=== PATIENT | female | born 1980 | race Caucasian/White ===

== ENCOUNTER 2018-11-05 13:12 | Inpatient (IN) | payer MEDICAID, OTHER ==
[~2018-11-05] VITALS: Ht 172.7 cm; Wt 68.2 kg
[2018-11-05] MEDS ORDERED: CefTRIAXone 2gm/D5W 50ml 50 ML IV ONE (13:40)
[2018-11-05] MEDS ORDERED: vancomycin/NS 1 GM ADD-VANTAGE 250 ML IV ONE (13:40)
[2018-11-05 14:13] LABS: BASOPHILS # (AUTO) 0.1 X10'3 (0-0.2); BASOPHILS % (AUTO) 0.5 % (0-1); EOSINOPHILS % (AUTO) 0.3 % (0-6); HEMATOCRIT 44.5 % (35.0-45.0); HEMOGLOBIN 14.8 g/dl (12.0-16.0); LYMPHOCYTES % (AUTO) 8.3 % (21-51); MEAN CORPUSCULAR HEMOGLOBIN 30.2 PG (27.0-31.0); MEAN CORPUSCULAR HGB CONC 33.2 g/dL (33.0-36.5); MEAN CORPUSCULAR VOLUME 90.8 FL (78-98); MEAN PLATELET VOLUME 6.4 FL (7.4-10.4); MONOCYTES # (AUTO) 0.6 X10'3 (0-0.9); MONOCYTES % (AUTO) 5.4 % (2-12); NEUTROPHILS # (AUTO) 10.1 X10'3 (1.8-7.7); NEUTROPHILS % (AUTO) 85.5 % (42-75); PLATELET COUNT 301 X10'3 (140-440); RED BLOOD COUNT 4.91 X10'6 (4.20-5.60); RED CELL DISTRIBUTION WIDTH 13.5 % (11.5-14.5); WHITE BLOOD COUNT 11.8 X10'3 (4.5-11.0)
[2018-11-05 14:16] LABS: CLARITY,URINE CLOUDY (Clear); COLOR,URINE YELLOW (Yellow); GLUCOSE, URINE NEGATIVE (Neg); KETONES,URINE NEGATIVE (Neg); LEUKOCYTE ESTERASE ,URINE SMALL (Neg); NITRITES, URINE NEGATIVE (Neg); OCCULT BLOOD,URINE MODERATE (Neg); PROTEIN,URINE TRACE mg/dl (Neg); URINE HCG NEGATIVE (NEG)
[2018-11-05 14:21] LABS: UA COLLECTION TYPE CLN CATCH MIDSTREAM
[2018-11-05 14:22] LABS: BACTERIA,URINE 4+ /HPF (Neg); MUCUS STRANDS NONE SEEN /LPF (Neg); RBC,URINE 0-2 /HPF (0-2); SQUAMOUS EPITHELIAL CELL,UR FEW /LPF (FEW); WBC,URINE 30-50 /HPF (0-4)
[2018-11-05 14:36] LABS: PARTIAL THROMBOPLASTIN TIME 32 SECONDS (22-32)
[2018-11-05 14:37] LABS: ALANINE AMINOTRANSFERASE 19 U/L (12-78); ALBUMIN 3.3 G/DL (3.4-5.0); ALBUMIN/GLOBULIN RATIO 0.8 (1.1-1.5); ALKALINE PHOSPHATASE 88 IU/L (46-116); ANION GAP 6 (8-16); ASPARTATE AMINO TRANSFERASE 12 U/L (10-37); BILIRUBIN,TOTAL 0.3 MG/DL (0.1-1.0); BLOOD UREA NITROGEN 11 MG/DL (7-18); BUN/CREATININE RATIO 10.6 (6.6-38.0); CALCIUM 8.9 MG/DL (8.5-10.1); CHLORIDE 100 MMOL/L (99-107); CREATININE 1.04 MG/DL (0.40-0.90); GLUCOSE 98 MG/DL (70-104); MAGNESIUM 1.9 MG/DL (1.5-2.4); POTASSIUM 3.4 MMOL/L (3.5-5.1); SODIUM 136 MMOL/L (135-145); TOTAL CARBON DIOXIDE 29.9 MMOL/L (24-32); TOTAL PROTEIN 7.5 G/DL (6.4-8.2); eGFR 59 ML/MIN
[2018-11-05] MEDS ORDERED: ondansetron/PF 4mg/2ml inj IV PRN (16:05)
[2018-11-05] MEDS ORDERED: mag hydrox/Alum hydrox/simeth 30ml oral suspension PO PRN (16:05)
[2018-11-05] MEDS ORDERED: HYDROcodone/acetaminophen 5mg/325mg tablet PO PRN (16:05)
[2018-11-05] MEDS ORDERED: morphine 2 MG/ML inj. syringe IV PRN (16:05)
[2018-11-05] MEDS ORDERED: magnesium hydroxide 30ml (MOM) UD suspension PO PRN (16:05)
[2018-11-05] MEDS ORDERED: HYDROcodone/acetaminophen 10/325mg tab PO PRN (16:05)
[2018-11-05] MEDS ORDERED: acetaminophen 325mg tablet PO PRN ×2 (16:05)
[2018-11-05] MEDS ORDERED: NO HOME MEDS (16:07)
[2018-11-05] MEDS: normal saline 1000ml 1,000 ML IV SCH (16:13)
[2018-11-05] MEDS ORDERED: levoFLOXACIN-Levaquin 250mg/D5 50 ML IV SCH (16:36)
--- NOTE | 2018-11-05 17:01 | NUR ---
ATTEMPTED TO CALL REPORT TO REHAN ORTIZ ON SURGICAL UNIT. NURSE IS NOT AVAILABLE FOR REPORT AT THIS TIME. MESSAGE LEFT.
--- NOTE | 2018-11-05 17:11 | NUR ---
CALLED FOR REPORT FROM LON.
--- NOTE | 2018-11-05 17:22 | NUR ---
TELEPHONE REPORT TO REHAN ORTIZ ON SURGICAL UNIT.
--- NOTE | 2018-11-05 17:49 | NUR ---
PATIENT CAM TO THE FLOOR, TUCKED HER IN AND WILL CHECK EMAR AND GET REPORT READY FOR NOC SHIFT
[2018-11-05 17:58] VITALS: BP 143/84
--- NOTE | 2018-11-05 18:18 | NUR ---
Problems reprioritized. Patient report given, questions answered & plan of care reviewed with FERCHO VAN.
--- NOTE | 2018-11-05 18:53 | NUR ---
Patient in room [facility]. I have received report from REHAN Dover and had the opportunity to ask questions and assume patient care. Addendum: 11/05/18 at 1855 by Naomi Haider RN Amended: Links added.
[2018-11-05] MEDS ORDERED: nicotine 21mg patch - 24 hr TD SCH (19:05)
[2018-11-05] MEDS: morphine 2 MG/ML inj. syringe IV PRN (19:08)
[2018-11-05] MEDS ORDERED: nicotine 14mg patch - 24hr TD SCH (19:35)
[2018-11-05 20:00] VITALS: BP 106/66
[2018-11-05] MEDS: ceFAZolin 1GM/D5W- ADD-VANTAGE 50 ML IV SCH (23:38)
[2018-11-06] VITALS: BP 103/59
[2018-11-06] MEDS: normal saline 1000ml 1,000 ML IV SCH ×2 (02:02→12:02)
[2018-11-06] MEDS: morphine 2 MG/ML inj. syringe IV PRN (05:35)
[2018-11-06 05:38] LABS: BASOPHILS # (AUTO) 0.2 X10'3 (0-0.2); BASOPHILS % (AUTO) 2.8 % (0-1); EOSINOPHILS # (AUTO) 0.1 X10'3 (0-0.9); EOSINOPHILS % (AUTO) 1.1 % (0-6); HEMOGLOBIN 12.9 g/dl (12.0-16.0); LYMPHOCYTES % (AUTO) 14.2 % (21-51); MEAN CORPUSCULAR HGB CONC 33.1 g/dL (33.0-36.5); MEAN CORPUSCULAR VOLUME 90.5 FL (78-98); MEAN PLATELET VOLUME 6.8 FL (7.4-10.4); MONOCYTES # (AUTO) 0.6 X10'3 (0-0.9); MONOCYTES % (AUTO) 8.2 % (2-12); NEUTROPHILS % (AUTO) 73.7 % (42-75); PLATELET COUNT 238 X10'3 (140-440); RED CELL DISTRIBUTION WIDTH 13.5 % (11.5-14.5); WHITE BLOOD COUNT 6.8 X10'3 (4.5-11.0)
[2018-11-06 05:51] LABS: ALBUMIN 2.4 G/DL (3.4-5.0); ANION GAP 8 (8-16); BLOOD UREA NITROGEN 8 MG/DL (7-18); BUN/CREATININE RATIO 10.1 (6.6-38.0); CALCIUM 8.3 MG/DL (8.5-10.1); CHLORIDE 106 MMOL/L (99-107); CREATININE 0.79 MG/DL (0.40-0.90); GLUCOSE 101 MG/DL (70-104); SODIUM 138 MMOL/L (135-145); TOTAL CARBON DIOXIDE 24.1 MMOL/L (24-32); eGFR 81 ML/MIN
--- NOTE | 2018-11-06 06:13 | NUR ---
Problems reprioritized. Patient report given, questions answered & plan of care reviewed with REHAN Young. Addendum: 11/06/18 at 0614 by Naomi Haider RN Amended: Links added.
[2018-11-06 07:00] VITALS: BP 103/61
[2018-11-06 08:00] VITALS: BP_SYST 109; BP_SYST 112; BP_SYST 116; BP_DIAS 63; BP_DIAS 68; BP_DIAS 72
[2018-11-06] MEDS ORDERED: enoxaparin 40mg/0.4ml syringe SUBCUT SCH (08:00)
[2018-11-06] MEDS ORDERED: CefTRIAXone/D5W-Rocephin 1gm 50 ML IV SCH (08:00)
[2018-11-06] MEDS ORDERED: HYDR-3964 PO (09:39)
[2018-11-06] MEDS: ceFAZolin 1GM/D5W- ADD-VANTAGE 50 ML IV SCH (09:39)
[2018-11-06] MEDS ORDERED: CEPH250T PO (09:39)
== END 2018-11-06 12:37 | disposition home or self-care (01) | DRG 383 ==
LOC: ER 13:13 → SUR 3N 17:34 → CMPBEDREQ 19:16
PROVIDERS: ADMIT Internal Medicine; ATTEND Internal Medicine
DX: L03.115 Cellulitis of right lower limb (principal); N17.9 Acute kidney failure, unspecified; N12 Tubulo-interstitial nephritis, not specified as acute or chronic; R16.0 Hepatomegaly, not elsewhere classified; D25.9 Leiomyoma of uterus, unspecified; F15.90 Other stimulant use, unspecified, uncomplicated; E86.0 Dehydration; F17.210 Nicotine dependence, cigarettes, uncomplicated; Z83.3 Family history of diabetes mellitus; Z87.442 Personal history of urinary calculi; Z90.5 Acquired absence of kidney; Z88.5 Allergy status to narcotic agent
CPT/HCPCS: 36415; 71045; 73590; 74176; 80048; 80053; 81001; 81025; 83605; 83735; 84145; 85025; 85610; 85730; 87040; 87070; 87077; 87088; 87186; 93005; 96365; 96366; 96368; 99285; G0378; J0690; J0696; J1956; J2270; J3370; J7030

== ENCOUNTER 2024-02-10 11:35 | Emergency (ER) | payer MEDICAID ==
[~2024-02-10] VITALS: Ht 162.6 cm; Wt 61.4 kg
[~2024-02-10 11:35] MED LIST: HYDR-3964 PO
[2024-02-10] MEDS ORDERED: NAPR-56 PO (12:28)
[2024-02-10] MEDS: ketorolac trometh. 30mg/ml inj. IM ONE (12:41)
[2024-02-10] MEDS: HYDROcodone/acetaminophen 5mg/325mg tablet PO ONE (12:46)
[2024-02-10 12:48] VITALS: BP 117/80; PULSE 60; RESP 16; TEMP 98.3; O2SAT 99
== END 2024-02-10 12:51 | disposition home or self-care (01) ==
LOC: ER 11:36
DX: S39.012A Strain of muscle, fascia and tendon of lower back, initial encounter (principal); F15.90 Other stimulant use, unspecified, uncomplicated; Z88.5 Allergy status to narcotic agent; Z79.899 Other long term (current) drug therapy; Z79.1 Long term (current) use of non-steroidal anti-inflammatories (NSAID); Z98.890 Other specified postprocedural states; W19.XXXA Unspecified fall, initial encounter; Y93.89 Activity, other specified; Y92.89 Other specified places as the place of occurrence of the external cause; Y99.8 Other external cause status
CPT/HCPCS: 72220; 99283

== ENCOUNTER 2024-03-18 16:34 | Emergency (ER) | payer MEDICAID ==
[~2024-03-18] VITALS: Ht 172.7 cm; Wt 60.6 kg
[2024-03-18] MEDS: CefTRIAXone 1000mg IM Kit (w/lidocaine diluent) IM STA (16:52)
[2024-03-18] MEDS: azithromycin 250mg tablet PO ONE (16:52)
[2024-03-18 17:28] LABS: SYPHILIS SCREENING TEST POC NEGATIVE (Negative)
[2024-03-18 17:53] VITALS: BP 110/62; PULSE 76; RESP 18; TEMP 98.2; O2SAT 97
[2024-03-21 08:15] LABS: CHLAMYDIA TRACHOMATIS, NAA Positive (Negative)
== END 2024-03-18 17:55 | disposition home or self-care (01) ==
LOC: ER 16:34
DX: A63.8 Other specified predominantly sexually transmitted diseases (principal); F17.200 Nicotine dependence, unspecified, uncomplicated; Z88.8 Allergy status to other drugs, medicaments and biological substances; Z87.442 Personal history of urinary calculi; Z98.890 Other specified postprocedural states
CPT/HCPCS: 36415; 86592; 87491; 87591; 96372; 99283; J0696

== ENCOUNTER 2024-06-30 21:19 | Emergency (ER) | payer MEDICAID ==
[~2024-06-30] VITALS: Ht 172.7 cm; Wt 62.6 kg
[2024-06-30 21:22] VITALS: BP 133/87; PULSE 86; TEMP 98.2; O2SAT 98
[2024-06-30] MEDS ORDERED: SULF1TAB45 PO (22:58)
[2024-06-30] MEDS ORDERED: CEPH-585 PO (22:58)
[2024-06-30] MEDS: sulfamethoxazole/trimethoprim DS (800/160mg) tablet PO ONE (23:25)
[2024-06-30] MEDS: cephalexin 250mg capsule PO ONE (23:25)
[2024-06-30 23:27] VITALS: RESP 16
== END 2024-06-30 23:27 | disposition home or self-care (01) ==
LOC: ER 21:20
DX: S60.351A Superficial foreign body of right thumb, initial encounter (principal); L03.011 Cellulitis of right finger; F15.90 Other stimulant use, unspecified, uncomplicated; Z88.5 Allergy status to narcotic agent; Z87.442 Personal history of urinary calculi; W45.8XXA Other foreign body or object entering through skin, initial encounter; Y93.89 Activity, other specified; Y92.89 Other specified places as the place of occurrence of the external cause; Y99.8 Other external cause status
CPT/HCPCS: 73140; 99283

== ENCOUNTER 2025-02-28 23:46 | Emergency (ER) | payer MEDICAID ==
[~2025-02-28] VITALS: Ht 185.4 cm; Wt 52.5 kg
[~2025-02-28 23:46] MED LIST changes: +CEPH-585 PO
[2025-03-01 00:02] VITALS: BP 119/67; PULSE 94; RESP 15; TEMP 99.3; O2SAT 98
[2025-03-02] MEDS ORDERED: NO HOME MEDS (04:12)
== END 2025-03-01 01:07 | disposition left against medical advice (07) ==
LOC: ER 23:47
DX: R10.9 Unspecified abdominal pain (principal); Z53.21 Procedure and treatment not carried out due to patient leaving prior to being seen by health care provider; Z88.1 Allergy status to other antibiotic agents; Z88.5 Allergy status to narcotic agent

== ENCOUNTER 2025-03-01 21:54 | Inpatient (IN) | payer MEDICAID ==
[~2025-03-01] VITALS: Ht 172.7 cm; Wt 65.6 kg
--- NOTE | 2025-03-01 22:52 | Physician Documentation ---
History of Present Illness Chief Complaint: Flank Pain Stated Complaint: KIDNEY STONES Time Seen by MD: 22:41 Primary Medical Doctor: none HPI 44-year-old female, history of single kidney, who presents with right side abdominal pain She tells me that she had her left kidney removed previously. She has had recurrent right-sided kidney stones. She tells me that recently she has been passing multiple kidney stones, but over the past 24 hours has been feeling well. Today, she developed severe pain in the right side of her abdomen. She states it wraps from her right flank all the way around the right lower abdomen. She reports associated nausea and general malaise. She is still urinating. No pain or burning or hematuria. No fevers or chills. No vomiting or diarrhea. The pain feels worse than previous kidney stones. Medication Reconciliation Allergies: Coded Allergies: codeine (Verified Allergy, Mild, 03/01/25) Hyperactive ciprofloxacin (Verified Allergy, Unknown, 03/01/25) Scheduled Cephalexin*Monohydrate* (Keflex*), 1 CAP PO QID Scheduled PRN Hydrocodone Bit/Acetaminophen (Hydrocodon-Acetaminophen 5-325), 1 TAB PO Q6H PRN PRN for moderate pain 4-6 Past Medical History Past Medical History: Kidney Stones Past Surgical History: other Other Past Surgical History: Left nephrectomy Alcohol Use: None Drug Use: methamphetamine Lives In: Home Review of Systems Constitutional: Denies: fever Gastrointestinal: Reports: abdominal pain, nausea; Denies: vomiting Physical Exam Vital Signs: Temperature: 100.5, Source: Oral, Heart Rate: 101, Respiratory Rate: 18, BP: 111/63, Pulse Oximetry: 99, Weight: 65.600 Physical Exam General: This is a very uncomfortable, tearful, thin middle-aged woman lying on her side in bed HEENT: Atraumatic, oropharynx appears dry Heart: Mild tachycardic, appears regular Lungs: normal work of breathing, normal oxygen saturation on room air Abdomen: Soft, nondistended. Diffuse tenderness on palpation of the right side of the abdomen only, no left-sided tenderness, voluntary guarding. Back: Positive right CVA tenderness to percussion Neuro: Alert and oriented, no focal deficits Psychiatric: Anxious and in mild distress Progress Results/Orders Results/Orders Orders - PABLO VARGHESE MD Normal Saline 1000ml (0.9% Sodium Chlori (03/01/25 22:50) Ondansetron Inj. (Zofran 4mg/2ml Vial) (03/01/25 22:50) Hydromorphone 0.5 Mg/0.5 Ml/Pf (Dilaudid (03/01/25 22:50) Cbc/Diff (03/01/25 22:48) CMP (03/01/25 22:48) Lipase (03/01/25 22:48) Urinalysis, Cult If Indicated (03/01/25 22:48) Vital Signs 03/01/25 21:57 Temp 100.5 Pulse 101 Resp 18 B/P (MAP) 111/63 Pulse Ox 99 EKG/XRAY/CT/US/VASC/MRI CT : Interpreted By: both Impression I personally reviewed the CT scan, which shows no obvious obstructing ureteral stone, but there are inflammatory changes to the kidney Consults/PCP Consults/PCP : Additional Comment Consult: I spoke to the internal medicine service, for admission in the hospital Medical Decision Making Additional Comments Differential includes kidney stone, pyelonephritis, infected stone, diverticulitis, colitis, bowel obstruction, perforated bowel Assessment The patient presents with severe flank pain. She only has 1 kidney. Her workup is concerning for pyelonephritis. No evidence of obstructing ureteral stone. She was given pain and nausea medication, IV fluids, and IV antibiotics. Given that she only has 1 kidney, she will be admitted to the medicine service for further treatment. Departure Impression: Primary Impression: Acute pyelonephritis Referrals: NO PRIMARY CARE PROVIDER (PCP) Signature Scribe Signature: na Attestation: PABLO Flores MD Mar 01, 2025 22:52
[2025-03-01] MEDS: ondansetron/PF 4mg/2ml inj IV ONE (23:07)
[2025-03-01] MEDS: HYDROmorphone inj. 0.5 MG/0.5 ML DISP.SYRIN IV ONE (23:07)
[2025-03-01] MEDS: normal saline 1000ML IV soln IVB ONE (23:07)
[2025-03-01 23:20] LABS: MEAN PLATELET VOLUME 6.7 FL (7.4-10.4); RED CELL DISTRIBUTION WIDTH 13.9 % (11.5-14.5)
[2025-03-01 23:36] LABS: CREATININE 1.09 MG/DL (0.40-0.90); TOTAL CARBON DIOXIDE 27.0 MMOL/L (24-32); eCRCL 65 ML/MIN; eGFR 54 ML/MIN
[2025-03-02 01:12] LABS: LEUKOCYTE ESTERASE ,URINE LARGE (Neg); NITRITES, URINE POSITIVE (Neg); OCCULT BLOOD,URINE MODERATE (Neg)
[2025-03-02 01:19] LABS: UA COLLECTION TYPE NON-SPECIFIED
[2025-03-02 01:22] LABS: SQUAMOUS EPITHELIAL CELL,UR NONE SEEN /LPF (FEW)
[2025-03-02 01:53] LABS: URINE HCG NEGATIVE (NEG)
[2025-03-02] MEDS: CefTRIAXone/D5W-Rocephin 1gm 50 ML IV ONE (01:58)
[2025-03-02] MEDS: HYDROmorphone inj. 0.5 MG/0.5 ML DISP.SYRIN IV ONE (01:59)
[2025-03-02] MEDS ORDERED: potassium Cl 40MEQ/1/2NS 520ml 520 ML IV PRN (03:00)
[2025-03-02] MEDS ORDERED: potassium Cl 20 mEq SR tablet PO PRN (03:00)
[2025-03-02] MEDS ORDERED: ondansetron/PF 4mg/2ml inj IV PRN (03:00)
[2025-03-02] MEDS ORDERED: magnesium sulf-water 2g/50mL 50 ML IV PRN (03:00)
[2025-03-02] MEDS ORDERED: magnesium sulf-water 4G/100mL 100 ML IV PRN (03:00)
[2025-03-02] MEDS ORDERED: magnesium Cl slow-release 64mg tablet PO PRN (03:00)
--- NOTE | 2025-03-02 03:12 | HISTORY AND PHYSICAL-Residence ---
History & Physical Providers to CC Resident Creating Document: ROGERS JAMES RES CC: SANDOR FERRARO MD ~ History of Present Illness Primary Medical Doctor: ar hoskins Reason for Admit\Complaint: Right flank pain History of Present Illness 44-year-old female with history of recurrent nephrolithiasis, left nephrectomy, presented to the ER with chief complaints of right flank pain for about 1-2 days. Patient stated for the past few days she has been passing kidney stones. For about two days she developed right-sided flank pain pain 8/10, radiating to back, associated with dysuria. She also noticed fever with chills. Endorses nausea, vomitings, generalized fatigue. Denies hematuria. She also stated she is having intermittent vaginal bleed during this period. She did not have any abnormal uterine bleed before. Stated she had a Pap smear done few months ago which was normal. She had recurrent kidney stone since engage in the actually in 2003 she had to undergo left nephrectomy secondary to damage from kidney stones. She is not on follow up with any urologist. She does not know about the stone analysis or etiology of kidney stones. Denies any family history of kidney stones. PCP is [facility] Allergies: Coded Allergies: codeine (Verified Allergy, Mild, 03/01/25) Hyperactive ciprofloxacin (Verified Allergy, Unknown, 03/01/25) Home Medications Home Medications Active Keflex* (Cephalexin HCl) 500 Mg Capsule 1 Cap PO QID Hydrocodon-Acetaminophen 5-325 (Hydrocodone Bit/Acetaminophen) 1 Each Tablet 1 Tab PO Q6H PRN PRN Past Medical History Past Medical History Recurrent kidney stones She actually lost a left kidney due to complications of nephrolithiasis HCV infection Past Surgical History Surgical History Comment Left kidney removal Ankle surgery Wrist surgery Knee surgery Lung peeling Past Social History Social History Comment Smokes pack a day for the past 24 years Denies alcohol use Denies illicit drug use Independent for ADLs She lives with her mom Alcohol Use: None Drug Use: Methamphetamine Lives In: Home ROS ROS ROS Constitutional: Positive for fever, dizziness, weakness. Decreased appetite HEENT: No blurring of the vision, No sore throat, epistaxis, tinnitus Cardiovascular: No chest pain/discomfort, palpitations, syncope. No pedal edema Respiratory: No sob, cough,, hemoptysis Gastrointestinal: Positive for abdominal pain, nausea, vomiting. No diarrhea, constipation, melena. Genitourinary: No frquency, urgency, incontinence, nocturia. Positive for dysuria, hematuria Musculoskeletal: No arthralgia, myalgia Endocrine: Positive for fatigue, no polydipsia, polyuria. No heat or cold intolerance Neurologic: No headache, vertigo. No weakness, numbness or tingling of extremities Psychiatric: No hallucinations/delusions, no anhedonia, no suicidal ideation\ Hematologic: No bleeding or bruises Gynecologic- positive for vaginal bleed Reviewed in full. All negative except for pertinent positives in HPI Constitutional: Denies: fever Gastrointestinal: Reports: abdominal pain, nausea; Denies: vomiting Exam Vitals: Vital Signs Date Time Temp Pulse Resp B/P (MAP) Pulse Ox O2 Delivery O2 Flow Rate FiO2 03/02/25 02:35 98.1 101 16 104/68 (80) 97 General: General: Head: Normocephalic with an atraumatic Eyes: Pupils- 3mm, reacting to light, conjunctiva- anicteric Nose and throat: No polyps, septum- normal, no mucosal ulcers Neck: Supple, no lymphadenopathy, no carotid bruit Respiratory: No use of accessory muscles of respiration, Bilateral normal vesiscular breath sounds heard. No wheeze, rhochi or creps Cardiac: S1-S2 heard, rythm regular, no gallop/murmur Abdomen: Mild distended, right flank tenderness, no guarding/rigidity no organomegaly, bowel sounds- heard Extremities: no clubbing, no pedal edema, no deformities, peripheral pulses- 2+ Skin: warm and dry, no rash, no purpura Neuro: No focal deficit, gross cranial nerve exam- normal Diagnostic Data Last Recorded Lab Results: 03/01/25225803/01/[id number] Counseling Services Smoking & Tobacco Cessation: 3-10 Minutes (Patient is given counseling regarding the smoking cessation) Advance Care Planning Advanced Care plannin - 30 Minutes (Code status is discussed with her and she opted for full code) Additional Plan 44-year-old female with history of recurrent nephrolithiasis, left nephrectomy, presented to the ER with chief complaints of right flank pain for about 1-2 days. Right pyelonephritis -stented with flank pain and dysuria and fever -WBC 13.8, neutrophilic leukocytosis, pending procalcitonin -urinalysis positive for UTI -empirically started on IV Rocephin 1 g once daily -follow up on urine and blood cultures Recurrent nephrolithiasis Left nephrectomy -CT abdomen without contrast- Small stones are present in the right collecting system, without obvious ureteral stone. Left kidney surgically absent -Given acute pyelonephritis, urology in to be consulted -Started on IV fluids NS at 100 cc/hour Right hydrosalpinx Right adnexal enlargement Intermittent vaginal bleed -as per patient she had undergone a Pap smear few months ago which was normal -urine HCG negative -follow up on pelvic ultrasound to look for further delineation of right adnexal enlargement -consult Gynecology if needed Mild to moderate ascites Retroperitoneal/mesenteric lymphadenopathy -consider diagnostic paracentesis for evaluation of ascites -LFTs normal except for mild elevation of ALP -follow up on hep B, hep C serology Nicotine addiction -patient is given counseling regarding harmful effects of smoking -nicotine patch-patient declined Mild hyponatremia -sodium 133 -monitor BMP Mild hypokalemia -potassium 3.3 -replacement per protocol Hepatitis-C infection -patient stated she is currently not on treatment and she is working on getting a treatment -follow up on HCV serology Code Status: Full code Line/tube: PIV DVT prophylaxis: Lovenox Nutrition: Regular diet, npo in anticipation of surgery PT: Yes Prognosis: Guarded Disposition: Continue care in ortho floor, consider urology in the am Rogers James MD IM PGY-3 resident Fusaro Addendum #1 Neuro: - Monitor for delirium #2 CV: - Patient hemodynamically stable, monitor vitals - Monitor for potential arrhythmias due to hypokalemia #3 Pulm: - Promote incentive spirometry use - Keep oxygen saturation >92% #4 GI: - Advance diet when cleared by primary #5 Renal: Hypokalemia , recurrent nephrolithiasis - Will give potassium replacement - Monitor potassium levels closely #6 ID: Acute Pyelonephritis UTI , no obstructing stones or hydro noted. Adnexal mass theoretically could cause impingement - Continue ceftriaxone - Monitor for resolution of infection symptoms #7 Endo: - Maintain fasting glucose 150-180 mg/dL #8 ICT SALES ASSISTANT: Right Adnexal Mass, will need US and obstetrician/gynecologist consult for better evaluation - Further imaging or consult as needed #9 Heme/Onc: - Monitor for bleeding and blood clots - Ensure hemoglobin >7 g/dL and platelets >10,000/mm^3 #10 PPx: - Continue chemical DVT prophylaxis with Lovenox I saw this patient and completed a full visual exam via audio-visual HIPAA compliant technology. Date of Service: Mar 02, 2025 Billing Provider: [facility]ERRARO [facility] Mar 02, 2025 03:12 SANDOR FERRARO MD Mar 02, 2025 07:53
--- NOTE | 2025-03-02 03:17 | RADIOLOGY REPORT ---
Exam: CT CT ABDOMEN PELVIS History: Right flank pain, severe COMPARISON: None Technique: Multidetector spiral CT of the abdomen and pelvis was performed from lung bases to pubic s ymphysis. Intravenous contrast was administered during this examination. Portal venous imaging was o btained. Axial, coronal and sagittal multiplanar reformats were performed by the technologist on a [employer] workstation. Radiation Dose : 1. Abdomen/Pelvis: CTDIvol 10 mGy, DLP 539 mGy*cm. Findings: Lung Bases: Mild patchy asymmetric subpleural airspace disease in the right lung base. Liver: Unremarkable. Gallbladder and Biliary Tree: Unremarkable Pancreas: Unremarkable. Spleen: Unremarkable Adrenal Glands: Left adrenal is not well visualized. Right adrenals unremarkable. Kidneys: Surgically absent left kidney. Compensatory hypertrophy of the right kidney with prominen t circumferential perinephric stranding. Nonobstructing 3-5 mm stones in the right collecting system. The proximal right ureter appears mildly prominent in caliber with urothelial thickening; the mid to distal ureter is not well assessed, although no ureteral stone is visualized. Bladder: Unremarkable. Pelvic Organs: Asymmetrically enlarged right ovary with a dilated appearing tubular structure, overal l size measuring approximately 7.7 x 4.2 x 5.7 cm. The left ovary appears mildly enlarged and partial ly cystic, not well delineated from adjacent bowel loops in the uterus. The uterus is unremarkable. Bowel: No bowel wall thickening or obstruction. Vasculature: Unremarkable. Lymphadenopathy: Multiple enlarged, possibly confluence retroperitoneal lymph nodes suspected. Peritoneum: Small-moderate ascites with diffuse right perinephric and pelvic edema. No free air or o bvious fluid collection. Abdominal Wall: No significant hernia. Musculoskeletal: No acute abnormality. Mild spondylosis. IMPRESSION: 1. Assessment significantly limited by lack of intravenous contrast. Evidence of right worse than lef t hydrosalpinx, with other etiologies associated with ovarian and/or fallopian tube enlargement possi ble. Correlate with symptoms and consider pelvic ultrasound for further characterization. 2. Inflammatory appearance of the right kidney and upper urinary tract suggestive of upper tract infe ction. Low-grade obstruction from right adnexal enlargement is also possible. Small stones are presen t in the right collecting system, without obvious ureteral stone. The left kidney is surgically absen t. 3. Suspected multiple enlarged retroperitoneal lymph nodes, as well as mesenteric / retroperitoneal s tranding and edema, likely related to the pelvic or upper urinary tract process. 4. Additional clinical workup is recommended. Radiation optimization: All CT scans at this facility use at least one of these dose optimization melissa hniques: automated exposure control mA and/or kV adjustment per patient size (includes targeted exam s where dose is matched to clinical indication) or iterative reconstruction.
[2025-03-02] MEDS ORDERED: NO HOME MEDS (04:12)
[2025-03-02 04:30] VITALS: BP 123/80; PULSE 98; RESP 16; TEMP 98.6; O2SAT 95
[2025-03-02 08:00] VITALS: RESP 20; O2SAT 95
[2025-03-02] MEDS: K and/or MAG REPLACEMENT MC SCH (08:00)
[2025-03-02] MEDS: docusate sod 100mg capsule PO SCH (08:24)
[2025-03-02] MEDS: enoxaparin 40mg/0.4ml syringe SUBCUT SCH (08:25)
[2025-03-02] MEDS: ketorolac trometh 15mg/ml vial 15 MG/ML ML IV PRN (08:28)
[2025-03-02] MEDS: normal saline 1000ml 1,000 ML IV SCH (08:34)
--- NOTE | 2025-03-02 08:57 | RADIOLOGY REPORT ---
Technique: Real-time ultrasound images through the pelvis using a transabdominal transducer. For bett er evaluation of the ovaries and endometrial stripe, an endovaginal transducer was used. Indication: right flank pain with CT s/o adnexal enlargement Comparison: CT abdomen pelvis from same date Findings: The uterus measures 4.8 cm. The endometrial stripe measures 4 mm. There are no focal masses. There is no abnormal flow in the endometrium. Right ovary measures 4.2 x 2.6 x 3 cm. Normal flow on color doppler images. Right ovarian/ adnexal cy stic lesion measuring up to 3.6 cm in diameter. Left ovary measures 2.6 x 1.9 x 2.1 cm. Normal flow on color doppler images. No focal masses are doug ntified. Distended bladder. Small amount of free pelvic fluid. Impression: Right ovarian/ adnexal cystic appearing lesion measuring up to 3.6 cm in diameter, possibly represent ing hydrosalpinx versus complex cysts. MRI pelvis with and without contrast can be obtained for furt her characterization. Recommend process worker consultation for further management. Small amount of free pelvic fluid.
[2025-03-02] MEDS: normal saline 1000ml 1,000 ML IV ONE (09:35)
[2025-03-02 10:00] VITALS: BP 102/64; PULSE 90; RESP 20; TEMP 98.9; O2SAT 95
[2025-03-02] MEDS: HYDROcodone/acetaminophen 10/325mg tab PO PRN (13:21)
[2025-03-02 18:00] VITALS: BP 91/58; PULSE 68; RESP 16; TEMP 97.7; O2SAT 97
[2025-03-02] MEDS: CefTRIAXone/D5W-Rocephin 1gm 50 ML IV SCH (19:09)
[2025-03-02] MEDS: potassium Cl 20 mEq SR tablet PO PRN (19:10)
[2025-03-02 20:00] VITALS: RESP 16; O2SAT 97
[2025-03-02 22:00] VITALS: BP 99/65; PULSE 96; RESP 18; TEMP 99.7; O2SAT 96
[2025-03-03 05:58] LABS: MEAN PLATELET VOLUME 6.9 FL (7.4-10.4); RED CELL DISTRIBUTION WIDTH 13.7 % (11.5-14.5)
[2025-03-03 06:19] LABS: CREATININE 0.94 MG/DL (0.40-0.90); TOTAL CARBON DIOXIDE 24.6 MMOL/L (24-32); eCRCL 75 ML/MIN; eGFR 64 ML/MIN
[2025-03-03 06:30] VITALS: BP 113/69; PULSE 100; RESP 28; TEMP 100; O2SAT 92
[2025-03-03] MEDS: vancomycin/NS 1 GM ADD-VANTAGE 250 ML IV SCH (07:46)
--- NOTE | 2025-03-03 09:04 | PROGRESS NOTE ---
Daily Progress Note Providers to CC ~ Antibiotic Timeout Antibiotic Ordered?: Yes Subjective No acute events overnight. Patient examined at bedside. No new complaints, not in acute distress. Patient denies chest pain, sob, palpitations, abdominal pain, n/v/d. Low-grade fever, wbc slight uptrend but otherwise unremarkable. Preliminary blood negative, preliminary urine culture gram negative ap. Abdomen US thickened gallbladder without gallstones, follow HIDA scan. Objective Vital Signs Date Time Temp Pulse Resp B/P (MAP) Pulse Ox O2 Delivery O2 Flow Rate FiO2 03/03/25 07:55 Room Air 03/03/25 06:39 18 03/03/25 06:30 100.0 100 113/69 (84) 92 03/02/25 22:00 1.0 Result Diagram: 03/03/2543303/03/25433 Physical Exam General: Generalized weakness, A&Ox 3, NAD HEENT: Normocephalic, PERRLA Neck: Supple, trachea midline, no JVD Chest: Clear to auscultation bilaterally Cardiovascular: RRR, S1&S2 GI: Soft and nontender, negative Patricia's sign, negative rebound tenderness Extremities: No cyanosis/clubbing/or edema FACILITY SALES AND ADMIN: CN II-XII intact, no focal deficits Musculoskeletal: No paraspinal muscle tenderness, no muscle spasm Skin: Warm and intact Problem\Assessment\Plan 44-year-old female with history of recurrent nephrolithiasis, left nephrectomy, presented to the ER with chief complaints of right flank pain for about 1-2 days. Assessment & Plan Right pyelonephritis Hx left nephrectomy Hx nephrolithiasis 03/02: UTI positive, CT shows pyelonephritis, small stones with no hydronephrosis per medical economics consultant urologist Dr. Corbett; consulted ADDICTIONS COUNSELOR Dr. Byrne who will follow but 3.6cm right ovarian/adnexal cyst unlikely the cause -ID Dr. Hudson will follow 03/03: persistent lowgrade fever, start vanco/Zosyn, continue IVF; Preliminary blood negative, preliminary urine culture gram negative ap. Pt seen by Cartographic Designer Dr. Byrne with recommendation for repeat US in 4-6 weeks -abdomen US thickened gallbladder without gallstones, follow HIDA scan Ascites, mild-mod Retroperitoneal/mesenteric lymphadenopathy -CT shows small-moderate ascites with diffuse right perinephric and pelvic edema, paracentesis ordered -CT shows unremarkable liver, LFTs, T.bili unremarkable Nicotine dependence -nicotine patch-patient declined Hypokalemia Hyponatremia -follow bmp, replace as needed Hepatitis-C infection -patient stated she is currently not on treatment and she is working on getting a treatment -follow up on HCV serology Code Status: Full code DVT prophylaxis: Lovenox Date of Service: Mar 03, 2025 Billing Provider: DORCAS GRANADOS Common Visit Codes: 73640-[id number] INP/OBS CARE(HIGH) DORCAS GRANADOS Mar 03, 2025 09:04
[2025-03-03 10:00] VITALS: BP 98/63; PULSE 73; RESP 16; TEMP 98.5; O2SAT 94
--- NOTE | 2025-03-03 15:23 | RADIOLOGY REPORT ---
CLINICAL INFORMATION: 44 years old, Female; ascites. TECHNIQUE: Grayscale sonographic imaging of the right upper quadrant of the abdomen was performed, a ssisted by color Doppler techniques. COMPARISON: CT ABDOMEN PELVIS on DOS: 03/02/25 FINDINGS: The gallbladder wall measures 3.9 mm in thickness, abnormally thickened. Gallbladder is mildly distended. No gallstones are visualized. Negative reported sonographic Patricia's sign. The comm on bile duct measures 5.8 mm in diameter, within normal limits. The liver is normal in size and echotexture. No focal lesions. The pancreas is mostly obscured by bowel gas. Visualized portions of the pancreas appear grossly unr emarkable. The right kidney measures 14.6 cm. There is no hydronephrosis. There is heterogeneous echogenicity of the right kidney. Echogenic structure at the inferior pole of the right kidney measures up to 0.7 cm, possible nonobstructing calculus. IMPRESSION: 1. Gallbladder is mildly distended with thickened gallbladder wall, which may be seen with acute chol ecystitis in the appropriate clinical setting, although no gallstones are seen and a negative sonogra phic patricia's sign was reported by the diesel pile hammer operator. Correlate with clinical findings. 2. Enlarged, heterogeneous right kidney, may be due to pyelonephritis in the appropriate clinical set ting when correlated with recent CT findings. Correlate with clinical findings. 3. Additional findings as detailed above.
[2025-03-03] MEDS: piperacillin/tazo 3.375gm/50ml 50 ML IV SCH (15:48)
--- NOTE | 2025-03-03 16:27 | CONSULTATION ---
DATE OF CONSULTATION: 03/03/2025 DICTATING PHYSICIAN: Randy Byrne MD PROVIDER REQUESTING CONSULTATION: Matt Villatoro NP REASON FOR CONSULTATION: Right ovarian cyst. HISTORY OF PRESENT ILLNESS: The patient is a 44-year-old, nulliparous female who was admitted through the ER for complaints of right flank pain and fevers consistent with right-sided pyelonephritis. The patient has a history of multiple kidney stones, and in fact, had a nephrectomy apparently secondary to injury from kidney stones. A CT was performed showing what appeared to be a right-sided mass, possibly causing compression of the right ureter. An ultrasound was performed confirming a small right ovarian cyst, measuring 3.6 cm in diameter. There is also what appears to be a small right hydrosalpinx. PHYSICAL EXAMINATION: GENERAL: The patient is alert and oriented, in no acute distress. I discussed the findings with the patient. The patient denies any significant right lower quadrant pain or history of it. However, she does state she had PID approximately a year ago with either gonorrhea and/or chlamydia. Apparently, the patient was unaware of a right-sided mass. ABDOMEN: There is minimal right lower quadrant tenderness; however, the patient does have right flank pain which makes her exam somewhat questionable. PELVIC: Deferred. VITAL SIGNS: Temperature as of yesterday was 100.0, pulse was 100, respiratory rate of 28, blood pressure 113/69, saturating 92% on room air. Her current vital signs are not available at this time. SIGNIFICANT LABORATORY DATA: Creatinine is 0.94 with a GFR of 64. CBC shows a white count of 14.1 and a hemoglobin of 11.7. SIGNIFICANT STUDIES: Pelvic ultrasound shows a small uterus. Left ovary is within normal limits. No masses noted. Right ovary measuring 4.2 x 2.6 x 3 cm within the ovary. There is a 3.6 cm simple-appearing cyst on the images. Also noted in the images is a small hydrosalpinx, although this was not on the formal dictation. ASSESSMENT: A 44-year-old female with right pyelonephritis and an incidental small right ovarian cyst of no clinical significance. This appears to be a functional ovarian cyst measuring 3.6 cm with no features of malignancy. A small hydrosalpinx was noted, for which the patient appears to be asymptomatic. PLAN: I have discussed the findings with the patient. I have strongly encouraged her to discuss the findings with her primary care provider, as she does not have a tape editor. Unfortunately, I am unable to follow the patient as an outpatient as my group does not take her insurance. However, in either case, this is an outpatient issue. I have recommended to the patient to discuss the findings with her primary so that a followup ultrasound should be performed in approximately a month or so for re-assessment of the right ovarian cyst and possible intervention surgically if necessary for the right hydrosalpinx. The patient verbalized understanding, all of her questions were answered to her satisfaction. I will discuss the findings with the patient's care provider at [facility]. Randy Byrne MD TID: [id number] RECEIPT: [id number] JUAN/EMILI
[2025-03-03 18:00] VITALS: BP 96/60; PULSE 68; RESP 16; TEMP 99; O2SAT 94
[2025-03-03 18:43] LABS: URINE AMPHETAMINE SCREEN POSITIVE (Neg); URINE BARBITUATE SCREEN NEGATIVE (Neg); URINE BENZODIAZEPINES SCREEN NEGATIVE (Neg); URINE CANNABINOID SCREEN NEGATIVE (Neg); URINE COCAINE SCREEN NEGATIVE (Neg); URINE METHADONE SCREEN NEGATIVE (Neg); URINE OPIATE SCREEN POSITIVE (Neg); URINE PHENCYCLIDINE SCREEN NEGATIVE (Neg)
[2025-03-03 20:00] VITALS: RESP 16; O2SAT 97
[2025-03-03 22:00] VITALS: BP 116/71; PULSE 72; RESP 20; TEMP 97.9; O2SAT 98
[2025-03-03] MEDS: HYDROcodone/acetaminophen 5mg/325mg tablet PO PRN (23:14)
[2025-03-04 06:00] VITALS: BP 113/81; PULSE 71; RESP 16; TEMP 97.5; O2SAT 96
[2025-03-04 06:03] LABS: MEAN PLATELET VOLUME 6.7 FL (7.4-10.4); RED CELL DISTRIBUTION WIDTH 14.4 % (11.5-14.5)
[2025-03-04 06:29] LABS: CREATININE 0.85 MG/DL (0.40-0.90); TOTAL CARBON DIOXIDE 25.7 MMOL/L (24-32); eCRCL 83 ML/MIN; eGFR 72 ML/MIN
[2025-03-04] MEDS: NORMAL SALINE IV ONE (10:05)
[2025-03-04] MEDS: SINCALIDE IV ONE (10:05)
--- NOTE | 2025-03-04 11:15 | RADIOLOGY REPORT ---
Procedure: NM NM HIDA SCAN Exam Date: 03/04/2025 07:51 AM Clinical History: acute cholecystitis Comparison Study: US ULTRASOUND OF ABDOMEN on DOS: 03/03/25, CT CT ABDOMEN PELVIS on DOS: 03/02/25 Nuclear Medicine Hepatobiliary Scan. Technique: Following the intravenous administration of 5.1 mCi of technetium 99m labeled Choletec multiple plana r abdominal planar images were obtained in anterior projection in 5 minute intervals for45 minutes . Right lateral images were obtained at 45 minutes after injection. Findings: The liver appears grossly normal in size. There is no abnormal persistence of the cardiac or blood po ol activity. There is prompt visualization of the gallbladder and excretion of activity into the smal l bowel. Impression: Unremarkable hepatobiliary study without evidence of acute cholecystitis.
[2025-03-04 11:53] VITALS: BP 116/81; PULSE 71; RESP 16; TEMP 98.2; O2SAT 95
[2025-03-04] MEDS: polyethylene glycol 3350 17gm powd pack PO SCH (12:32)
[2025-03-04 18:00] VITALS: BP 105/71; PULSE 54; RESP 18; TEMP 97.8; O2SAT 99
[2025-03-04] MEDS ORDERED: VANCOMYCIN LEVEL IV ONE (19:30)
[2025-03-04 19:50] VITALS: RESP 18; O2SAT 96
[2025-03-04 22:00] VITALS: BP 108/76; PULSE 78; RESP 17; TEMP 96.5; O2SAT 95
--- NOTE | 2025-03-05 01:54 | CONSULTATION ---
DATE OF CONSULTATION: 03/04/2025 DICTATING PHYSICIAN: Tamir Hudson MD REASON FOR CONSULTATION: I am seeing the patient at the request of Matt Villatoro for evaluation of right-sided pyelonephritis. HISTORY OF PRESENT ILLNESS: The patient is a 44-year-old female with a solitary right kidney and a history of nephrolithiasis who was admitted to this facility a couple of days ago with right flank pain. She states that her left kidney was resected 20 years ago due to chronic infection with nephrolithiasis. This was apparently performed by Dr. Anna, but she has not continued to see him over the years. She was given ceftriaxone early on. She was not showing much improvement and she was changed over to vancomycin and Zosyn. There was some concern that her pain could be coming from a different source and she has undergone imaging of the gallbladder. She was also seen by Dr. Byrne of Gynecology as there was concern about the right fallopian tube and ovary. He felt that she likely had a small ovarian cyst and a small hydrosalpinx, both not significant. She does report some constipation. She is not having fever. Her highest temperature was when she came in at 100.5. PAST MEDICAL HISTORY: * Nephrolithiasis. * Nicotine dependence. * History of Hepatitis C. It is unclear if she has been treated in the past. PAST SURGICAL HISTORY: She has required a number of orthopedic procedures along with her left nephrectomy. ALLERGIES: CIPROFLOXACIN, although she apparently does okay with Levaquin. MEDICATIONS: * Zosyn. * Vancomycin. It has already been stopped. * Colace. * Lovenox. FAMILY HISTORY: Noncontributory. SOCIAL HISTORY: She lives with her mom here in [place]. She does smoke. She denies alcohol use. Her urine tox screen was positive for amphetamines and opiates. PHYSICAL EXAMINATION: VITAL SIGNS: She is afebrile with stable vital signs. GENERAL: She is a pleasant middle-aged female, lying in bed, looking stable. HEENT: Sclerae anicteric. Mouth is clear. NECK: Supple. LUNGS: Clear to auscultation bilaterally. HEART: Regular rate and rhythm. ABDOMEN: Soft without significant distention. She does have some tenderness at the right side as well as the right flank. EXTREMITIES: No edema. LABORATORY DATA: Her white blood cell count is 8,200, down from 14,000, hemoglobin 11.5, platelets 360,000. Creatinine is 0.85. Procalcitonin is mildly elevated at 0.47. Urinalysis with white blood cells too numerous to count and urine culture is growing a gram-negative ap, yet to be identified. Blood cultures are negative. CT scan demonstrates evidence of hydrosalpinx. She does have evidence of right-sided stones within the collecting system. There was no ureteral stone. There were some inflammatory changes around the right kidney. HIDA scan was negative. IMPRESSION: * Right-sided pyelonephritis due to gram-negative ap that is still being identified. * She has a solitary right kidney. Her left kidney was resected 20 years ago due to nephrolithiasis and chronic infection. She seems to be moving in the right direction right now. PLAN: She will continue with Zosyn. I am going to wait for her susceptibility testing to make any further adjustments. At that point, we should be able to come up with the appropriate outpatient plan to finish off this infection. Her constipation will be treated and hopefully her pain will continue to diminish. I will follow her closely and I thank you for allowing me to participate in her care. Tamir Hudson MD TID: [id number] RECEIPT: [id number] TANIA/SHAWANDA
[2025-03-05 05:13] LABS: HBSAG SCREEN Negative (Negative); HEPATITIS C VIRUS ANTIBODY Reactive (Non Reactive)
[2025-03-05 05:35] LABS: MEAN PLATELET VOLUME 6.5 FL (7.4-10.4); RED CELL DISTRIBUTION WIDTH 14.4 % (11.5-14.5)
[2025-03-05 05:56] LABS: CREATININE 0.83 MG/DL (0.40-0.90); TOTAL CARBON DIOXIDE 26.5 MMOL/L (24-32); eCRCL 85 ML/MIN; eGFR 74 ML/MIN
[2025-03-05 06:00] VITALS: BP 124/86; PULSE 74; RESP 14; TEMP 97.7; O2SAT 98
[2025-03-05 09:51] LABS: INR 1.0 INR
[2025-03-05 10:00] VITALS: BP 119/78; PULSE 68; RESP 16; TEMP 97.9; O2SAT 97
[2025-03-05 18:00] VITALS: BP 116/72; PULSE 70; RESP 18; TEMP 97.5; O2SAT 98
--- NOTE | 2025-03-05 18:59 | PROGRESS NOTE ---
Daily Progress Note Providers to CC ~ Antibiotic Timeout Antibiotic Ordered?: No Subjective Patient was seen in her room she denied any CVA tenderness having pain over right upper abdomen. She does not feel that she took meth. Firearms Sales Associate team we will evaluate patient for possible paracentesis. Objective Vital Signs Date Time Temp Pulse Resp B/P (MAP) Pulse Ox O2 Delivery O2 Flow Rate FiO2 03/05/25 10:00 97.9 68 16 119/78 (92) 97 Room Air 03/02/25 22:00 1.0 Result Diagram: 03/05/25 04003/05/25 040 General-patient not in any acute distress, alert awake oriented, chronically ill-appearing HEENT-atraumatic normocephalic, neck supple without elevated JVD, no thyromegaly or carotid bruit. No lymphadenopathy bilaterally. Eyes-no icterus or pallor seen in eyes Chest-clear to auscultation bilaterally, breathing nonlabored no tachypnea, no wheezing, no crepitation, no crackles. Heart-S1-S2 normal, regular heart rate no murmur Abdomen bowel sounds positive on auscultation, soft nondistended , signs of tenderness on palpation over right upper quadrant, no CVA tenderness, no guarding, no rigidity Skin no active skin rash, Neurology-grossly intact, nonfocal alert awake oriented Extremity- no pedal edema able to move all 4 extremities Psychiatry - patient is not confused or agitated cooperated during physical examination Coagulation Studies Laboratory Tests Test 03/05/25 08:36 Prothrombin Time 10.4 SECONDS (9.0-12.0) INR International Normalized Ratio 1.0 INR Coagulation Comments Problem\Assessment\Plan 44-year-old female with history of recurrent nephrolithiasis, left nephrectomy, presented to the ER with chief complaints of right flank pain for about 1-2 days. Assessment & Plan Right pyelonephritis Hx left nephrectomy Hx nephrolithiasis 03/02: UTI positive, CT shows pyelonephritis, small stones with no hydronephrosis per specialty development consultant urologist Dr. Corbett; consulted MUSEUM HOST/HOSTESS Dr. Byrne who will follow but 3.6cm right ovarian/adnexal cyst unlikely the cause -ID Dr. Hudson will follow 03/03: persistent lowgrade fever, start vanco/Zosyn, continue IVF; Preliminary blood negative, preliminary urine culture gram negative ap. Pt seen by [employer] Dr. Byrne with recommendation for repeat US in 4-6 weeks -abdomen US thickened gallbladder without gallstones, follow HIDA scan 03/05/25- HIDA scan- Impression: Unremarkable hepatobiliary study without evidence of acute cholecystitis. Patient has multidrug resistant UTI, currently on Zosyn. Followed by Dr. Hudson Ascites, mild-mod Retroperitoneal/mesenteric lymphadenopathy -CT shows small-moderate ascites with diffuse right perinephric and pelvic edema, paracentesis ordered -CT shows unremarkable liver, LFTs, T.bili unremarkable Nicotine dependence -nicotine patch-patient declined Hypokalemia Hyponatremia -follow bmp, replace as needed Hepatitis-C infection -patient stated she is currently not on treatment and she is working on getting a treatment -follow up on HCV serology Code Status: Full code DVT prophylaxis: Lovenox Patient's current condition is guarded we will continue to follow patient in a.m. Date of Service: Mar 05, 2025 Billing Provider: TREE REILLY MD Common Visit Codes: 88304-YCFMNIOAXN INP/OBS CARE(HIGH) TREE REILLY MD Mar 05, 2025 18:58
[2025-03-05 20:00] VITALS: RESP 18; O2SAT 98
[2025-03-05] MEDS: CefTRIAXone 2gm/D5W 50ml BAG 50 ML IV SCH (20:44)
[2025-03-05 22:00] VITALS: BP 108/73; PULSE 61; RESP 13; TEMP 98.6; O2SAT 96
[2025-03-06 04:59] LABS: MEAN PLATELET VOLUME 6.3 FL (7.4-10.4); RED CELL DISTRIBUTION WIDTH 14.1 % (11.5-14.5)
[2025-03-06 06:00] VITALS: BP 131/86; PULSE 50; RESP 14; TEMP 98.8; O2SAT 97
[2025-03-06 06:15] LABS: CREATININE 0.93 MG/DL (0.40-0.90); TOTAL CARBON DIOXIDE 27.1 MMOL/L (24-32); eCRCL 76 ML/MIN; eGFR 65 ML/MIN
[2025-03-06 10:00] VITALS: BP 104/68; PULSE 83; RESP 16; TEMP 97.7; O2SAT 98
--- NOTE | 2025-03-06 11:57 | CONSULTATION REPORT - RESIDENT ---
Consult Providers to CC Resident Creating Document: EZRA PUGH CC: MEHDI MONTIEL MD History of Present Illness Reason for Admit\Complaint: Abdominal pain History of Present Illness 44-year-old female with history of recurrent nephrolithiasis, left nephrectomy, presented to the ER with chief complaints of right flank pain. CT scan showed [id number] ascites and ICU has been consulted for therapeutic and diagnostic paracentesis. Allergies: Coded Allergies: codeine (Verified Allergy, Mild, 03/01/25) Hyperactive ciprofloxacin (Verified Allergy, Unknown, 03/01/25) Home Medications Home Medications Active Reported No Home Medications (Home Med List) Each Family History Family History: Patient reports no known family medical history. Exam Vitals: Vital Signs Date Time Temp Pulse Resp B/P (MAP) Pulse Ox O2 Delivery O2 Flow Rate FiO2 03/06/25 06:00 98.8 50 14 131/86 (101) 97 Room Air 03/02/25 22:00 1.0 General: General: awake, alert oriented to place, time, and person HEENT: No pallor present, no icterus, moist mucous membranes Neck: No masses and tenderness Resp: Unlabored. Lungs clear to auscultation bilaterally. Chest: Normal expansion Cardiovascular: Regular Rate and rhythm, normal S1 and S2 without murmur, rub or gallop Abdomen: Soft and nontender, no organomegaly, no guarding and rigidity, bowel sounds present Neuro: No focal weakness in the upper and lower limb muscles, power of the muscles 5/5 bilateral upper and lower extremities, normal reflexes bilaterally. Cranial nerves intact Extremities: No cyanosis,clubbing or edema Skin: Warm and Dry. No lesions Psych: Normal affect Diagnostic Data Last Recorded Lab Results: 03/06/2541203/06/25412 Diagnostic Data: Laboratory Tests Test 03/05/25 08:36 Prothrombin Time 10.4 SECONDS (9.0-12.0) INR International Normalized Ratio 1.0 INR Coagulation Comments Additional Plan 44-year-old female with history of recurrent nephrolithiasis, left nephrectomy, presented to the ER with chief complaints of right flank pain. CT scan showed [id number] ascites and ICU has been consulted for therapeutic and diagnostic paracentesis. Ascites After performing bedside ultrasound. It was determined that patient did not have enough ascitic fluid for a paracentesis. The procedure will not be performed at this time. Rest as per hospitalist Ezra Camilo MD Internal Medicine Resident PGY-2 Date of Service: Mar 05, 2025 Billing Provider: MEHDI MONTIEL MD,EZRA MEANS Mar 06, 2025 11:57
--- NOTE | 2025-03-06 13:20 | PROGRESS NOTE ---
Progress Note Dictate Providers to CC ~ Subjective Subjective: She states that she is feeling better. Her pain has largely resolved. She would like to go home. Objective Objective: GENERAL: She is a pleasant middle-aged female, lying in bed, looking stable. LUNGS: Clear to auscultation bilaterally. HEART: Regular rate and rhythm. ABDOMEN: Soft without significant distention or tenderness EXTREMITIES: No edema. Lab Results: 03/06/25 0413 03/06/25412 Lab comments: Urine culture with MDR E coli Problem\Assessment\Plan Additional Plan Right-sided pyelonephritis due to MDR E. coli. She has a solitary right kidney. Her left kidney was resected 20 years ago due to nephrolithiasis and chronic infection. She has clearly improved. Discharged home with Bactrim for another week KELLEY SHARPE MD Mar 06, 2025 13:20
[2025-03-06] MEDS ORDERED: SULF1TAB49 PO (13:40)
--- NOTE | 2025-03-06 19:03 | DISCHARGE SUMMARY ---
Discharge Summary Providers to CC ~ Discharge Summary Admission Diagnosis: UTI, KIDNEY STONES Hospital Course DATE OF ADMISSION: 03/02/2025 DATE OF DISCHARGE: 03/06/2025 Discharge Diagnosis\\Comment: Pyelonephritis, ascites mild, nicotine dependence, hyponatremia/hypokalemia, hepatitis-C, right ovarian cyst with small hydrosalpinx Operations\\Procedures: None Consultants: Dr. Tamir armenta infectious disease physician, Dr. Randy Byrne machine tank operator Complications: None Condition on DC: Stable New Medications: Sulfamethoxazole/Trimethoprim (Bactrim Ds Tablet) 800 Mg-160 Mg Tablet 1 EACH PO BID, #14 TAB Discontinued Medications: Home Med List (No Home Medications) Each Discharge Summary: The patient was admitted by resident physician LUPE Hunter, under the supervision of SANDOR Alves MD with the following HPI:"44-year-old female with history of recurrent nephrolithiasis, left nephrectomy, presented to the ER with chief complaints of right flank pain for about 1-2 days. Patient stated for the past few days she has been passing kidney stones. For about two days she developed right-sided flank pain pain 8/10, radiating to back, associated with dysuria. She also noticed fever with chills. Endorses nausea, vomitings, generalized fatigue. Denies hematuria. She also stated she is having intermittent vaginal bleed during this period. She did not have any abnormal uterine bleed before. Stated she had a Pap smear done few months ago which was normal. She had recurrent kidney stone since engage in the actually in 2003 she had to undergo left nephrectomy secondary to damage from kidney stones. She is not on follow up with any urologist. She does not know about the stone analysis or etiology of kidney stones. Denies any family history of kidney stones. PCP is [facility]." The patient was evaluated by Dr. Byrne machine tank operator who recommended that the primary care provider repeat transvaginal ultrasound in one month to monitor any changes of the patient's ovarian cyst with small hydrosalpinx. The patient is evaluated by Dr. Tamir armenta infectious disease physician as the patient has a right-sided pyelonephritis and has a solitary right kidney the patient urine culture grew out E coli that was sensitive to cefepime, ceftriaxone, meropenem and Bactrim Dr. Armenta recommended the patient be discharged with a one-week course of p.o. Bactrim. The patient has a mild ascites however there was not enough fluid to aspirate per Dr. Huang electronic console display operator. Patient has a very mild hyponatremia on admission with serum sodium 133 which normalized the following day. Patient also had a mild hypokalemia serum potassium of 3.3 this normalized the following day and remained in normal range the rest of hospitalization. Gen. No acute distress alert and oriented 4 Lungs clear to ascultation bilaterally, no wheezes rales or rhonchi appreciated Heart normal sinus rhythm no murmurs rubs or clicks noted Abdomen soft nontender bowel sounds are normoactive Lower extremities no clubbing cyanosis, nor edema appreciated bilaterally The patient felt ready to be discharged and was medically cleared to be discharged on 03/06/2025 The patient was seen and evaluated on day of discharge. Time spent on discharge 35 minutes *Problems/Diagnosis: (1) Acute pyelonephritis Status: Acute Total Time Spent on D/C: > 30 Minutes Date of Service: Mar 06, 2025 Billing Provider: SELVIN CAREY DO Common Visit Codes: 75253-FXP/OBS DISCH DAY >30min SELVIN CAREY DO Mar 06, 2025 18:59
[2025-03-06] MEDS ORDERED: polyethylene glycol 3350 17gm powd pack PO SCH (21:00)
== END 2025-03-06 14:45 | disposition home or self-care (01) | DRG 463 ==
LOC: ER 21:54 → ED HOLD 03-02 03:03 → EDBEDREQ 03-02 03:40 → SUR 3N 03-02 04:20
PROVIDERS: ADMIT Internal Medicine Pulmonary Disease; ATTEND Nurse Practitioner Family
PROC: BW211ZZ Computerized Tomography (CT Scan) of Abdomen and Pelvis using Low Osmolar Contrast (ICD-10-PCS; principal; 2025-03-01)
PROC: CF141ZZ Planar Nuclear Medicine Imaging of Gallbladder using Technetium 99m (Tc-99m) (ICD-10-PCS; 2025-03-04)
DX: N10 Acute pyelonephritis (principal); E87.1 Hypo-osmolality and hyponatremia; R18.8 Other ascites; N70.11 Chronic salpingitis; B19.20 Unspecified viral hepatitis C without hepatic coma; E87.6 Hypokalemia; F17.200 Nicotine dependence, unspecified, uncomplicated; N83.201 Unspecified ovarian cyst, right side; Z88.5 Allergy status to narcotic agent; Z88.8 Allergy status to other drugs, medicaments and biological substances; Z90.5 Acquired absence of kidney
CPT/HCPCS: 36415; 74176; 76700; 76830; 76856; 78227; 80053; 80202; 80305; 81001; 81025; 83036; 83605; 83690; 83735; 84145; 85025; 85610; 86803; 87040; 87077; 87081; 87088; 87186; 87340; 87522; 93976; 96361; 96374; 96375; 99285; A4615; A9537; G0378; J0696; J1171; J1650; J1885; J2405; J2543; J2805; J3373; J7030